=== PATIENT | male | born 1980 | race African-American/Black ===

== ENCOUNTER 2018-11-13 05:44 | Emergency (ER) | payer SELFPAY ==
[2018-11-13 05:50] VITALS: BP 119/78
--- NOTE | 2018-11-13 09:03 | ED ---
Lower Extremity - HPI Summary HPI Summary: patient is a 38-year-old male presenting to the ED by way of EMS with bilateral foot pain. He states the soles of his feet have been hurting for several weeks to months and he feels he is no longer able to step down onto his right foot anymore. He is endorsing pain directly over the pad of his right forefoot where calluses formed. He states he did not have good shoes for a long time and therefore formed calluses. He has also endorsing long toenails and does not cut these. While he has got new shoes, he does report continuing symptoms. [place] felt like he could no longer walk so he called the ambulance. On arrival, he appears well, complaining of 2/10 for pain and requesting a sandwich. - History of Current Complaint Chief Complaint: EDExtremityLower Stated Complaint: FOOT PAIN PER EMS Time Seen by Provider: 11/13/18 06:09 Hx Obtained From: Patient Onset/Duration: Weeks Severity Initially: Moderate Severity Currently: Moderate Pain Intensity: 10 Pain Scale Used: 0-10 Numeric Timing: Constant Location: Is Discrete @ - bilateral feet to the soles/forefoot Character Of Pain: Aching Associated Signs And Symptoms: Negative: Swelling, Redness, Bruising Able to Bear Weight: No - Risk Factors Gout Risk Factors: Negative DVT Risk Factors: Negative Septic Arthritis Risk Factor: Negative - Allergies/Home Medications Allergies/Adverse Reactions: Allergies Allergy/AdvReac Type Severity Reaction Status Date / Time SEASONAL Allergy Runny Nose Uncoded 10/13/15 07:41 PMH/Surg Hx/FS Hx/Imm Hx Previously Healthy: Yes Endocrine/Hematology History: Denies: Hx Anticoagulant Therapy, Hx Blood Disorders, Hx Sickle Cell Disease - Immunization History Date of Tetanus Vaccine: Unk Date of Influenza Vaccine: None Hx Pertussis Vaccination: No Immunizations Up to Date: Yes Infectious Disease History: No Infectious Disease History: Denies: Traveled Outside the [place] in Last 30 Days - Family History Known Family History: Positive: None - Social History Occupation: Unemployed Lives: Alone Alcohol Use: Occasionally Hx Substance Use: Yes Substance Use Type: Reports: Marijuana Substance Use Comment - Amount & Last Used: daily Hx Tobacco Use: Yes Smoking Status (MU): Current Every Day Smoker Review of Systems Constitutional: Negative Negative: Fever, Chills, Fatigue, Skin Diaphoresis Negative: Palpitations, Chest Pain Negative: Shortness Of Breath, Cough Positive: no symptoms reported, see HPI Positive: Other - pain to the soles of the feet Positive: Other - callus present throughout bilaterally Neurological: Negative All Other Systems Reviewed And Are Negative: Yes Physical Exam Triage Information Reviewed: Yes Vital Signs On Initial Exam: Initial Vitals Temp Pulse Resp BP Pulse Ox 98.5 F 75 18 119/78 98 11/13/18 05:46 11/13/18 05:46 11/13/18 05:46 11/13/18 05:46 11/13/18 05:46 Vital Signs Reviewed: Yes Diagnostics - Vital Signs Vital Signs Temp Pulse Resp BP Pulse Ox 11/13/18 06:32 98.6 F 79 16 119/78 99 11/13/18 05:46 98.5 F 75 18 119/78 98 - Laboratory Lab Statement: Any lab studies that have been ordered have been reviewed, and results considered in the medical decision making process. Lower Extremity Course/Dx - Course Course Of Treatment: Physical examination, there are calluses formed to the bilateral feet onto the pads of the forefoot. Discussed with the patient he will need to see a security business analyst for these as we do not address the treatment of these in the ED. I did give him information for 2 security business analyst in the area as well as recommended a callous cream. - Diagnoses Provider Diagnoses: Callus of foot Discharge - Sign-Out/Discharge Documenting (check all that apply): Patient Departure Patient Received Moderate/Deep Sedation with Procedure: No - Discharge Plan Condition: Stable Disposition: HOME Referrals: No Primary Care Phys,NOPCP [Primary Care Provider] - Additional Instructions: Calluses can have causes that aren't due to underlying disease. Examples include poorly fitting shoes, frequent use of tools or instruments, frequently walking barefoot, or frequent friction to an area of skin. I advise better fitting shoes There are also over the counter callus removers - you can get this at your pharmacy Please follow up with podiatry as soon as possible [place] for ambulation as needed Call to make an appt at either of the places listed below [facility] [address] [facility] [phone] Víctor Garrett [address] [facility] [facility] [phone] - Billing Disposition and Condition Condition: STABLE Disposition: Home
== END 2018-11-13 06:32 | disposition home or self-care (01) ==
LOC: ED 05:44
DX: L84 Corns and callosities (principal); Z72.0 Tobacco use
CPT/HCPCS: 99282